=== PATIENT | female | born 1980 | race African-American/Black ===

== ENCOUNTER 2016-07-08 18:37 | Emergency (ER) | payer MEDICAID ==
[~2016-07-08] VITALS: Ht 154.9 cm; Wt 60.8 kg
[2016-07-08 18:48] VITALS: BP 150/102
== END 2016-07-08 22:30 | disposition left against medical advice (07) ==
LOC: ER 18:50
DX: R51 Headache (principal); J02.9 Acute pharyngitis, unspecified; M54.5 Low back pain; Z53.21 Procedure and treatment not carried out due to patient leaving prior to being seen by health care provider